=== PATIENT | female | born 2000 | race Two or more races ===

== ENCOUNTER 2025-05-09 18:14 | Emergency (ER) | payer MEDICAID ==
[~2025-05-09] VITALS: Ht 170.2 cm; Wt 143.6 kg
[~2025-05-09 18:14] MED LIST: NITR-87 PO
[2025-05-09 19:52] VITALS: BP 133/104; PULSE 57; RESP 16; TEMP 98.4; O2SAT 97
--- NOTE | 2025-05-09 19:56 | ED.PDOC ---
History of Present Illness(SKN HPI Comments 24F presents to the ER w/ the c/c of a wound check. Pt reports on having had chronic wound wince 2022 of a dog bite on the RLE. Pt notes on having had 3 surgeries, and 10 infections to the area and not able to stand long due from pain. Pt states on currently having muscle spasms which go up into the leg. Pt states on also having a home nurse as well. Denies any symptoms at this time. Patient denies any CP, SOB, dizziness, numbness, weakness, tingling, fever, chills, or recent fall. Chief Complaint: Wound Check Time Seen by MD: 19:50 History of Present Illness: Nurses Notes, Medications, Allergies Allergies: Coded Allergies: NO KNOWN ALLERGIES (Unverified , 05/09/25) Home Meds Active Scripts Nitrofurantoin Monohydrate Mac (Macrobid) 100 Mg Cap, 100 MG PO BID for 5 Days, #10 CAP 0 Refills Prov:LULU CORONEL 12/27/22 Information Source: Patient Mode of Arrival: Ambulatory Severity: Moderate Timing: Came on: Gradually Duration: Since onset Prehospital treatment: None Location: Leg Mechanism: Preceding Wound Object: None Condition of Object: None Retained Foreign Body: Unknown Wound Type: None History of: None Associated Signs and Symptoms: Pain Past Medical History PAST MEDICAL HISTORY: Denies Surgical History: Denies all surgeries SLOT ROUTER History: No Pertinent SLOT ROUTER History Family History Family History: Reviewed,noncontributory to illness, Unknown Social History Smoker: Non-Smoker Alcohol: Denies ETOH Use Drugs: Denies Drug Use Lives In: Home Constitutional: denies: chills, diaphoresis, fatigue, fever, malaise, sweats, weakness, others EENTM: denies: blurred vision, double vision, ear bleeding, ear discharge, ear drainage, ear pain, ear ringing, eye pain, eye redness, hearing loss, mouth pain, mouth swelling, nasal discharge, nose bleeding, nose congestion, nose pain, photophobia, tearing, throat pain, throat swelling, voice changes, others Respiratory: denies: cough, hemoptysis, orthopnea, SOB at rest, shortness of breath, SOB with excertion, stridor, wheezing, others Cardiovascular: denies: chest pain, dizzy spells, diaphoresis, Dyspnea on exertion, edema, irregular heart beat, left arm pain, lightheadedness, palpitations, PND, syncope, others Gastrointestinal: denies: abdomen distended, abdominal pain, blood streaked bowels, constipated, diarrhea, dysphagia, difficulty swallowing, hematemesis, melena, nausea, poor appetite, poor fluid intake, rectal bleeding, rectal pain, vomiting, others Genitourinary: denies: abnormal vagina bleeding, burning, dyspareunia, dysuria, flank pain, frequency, hematuria, incontinence, pain, , vagina discharge, urgency, others Neurological: denies: dizziness, fainting, headache, left sided numbness, left sided weakness, numbness, paresthesia, pre-existing deficit, right sided numbness, right sided weakness, seizure, speech problems, tingling, tremors, w eakness, others Musculoskeletal: denies: back pain, gout, joint pain, joint swelling, muscle pain, muscle stiffness, neck pain, others Integumetry: reports: wounds; denies: bruises, change in color, change in hair/nails, dryness, laceration, lesions, lumps, rash, others Allergic/Immunocompromised: denies: Difficulty Healing, Frequent Infections, Hives, Itching, others Hematologic/Lymphatic: denies: anemia, blood clots, easy bleeding, easy bruising, swollen glands, others Endocrine: denies: excessive hunger, excessive sweating, excessive thirst, excessive urination, flushing, intolerance to cold, intolerance to heat, unexplained weight gain, unexplained weight loss, others Psychiatric: denies: anxiety, bipolar disorder, depression, hopeless, panic disorder, schizophrenia, sleepless, suicidal, others All Other Systems: Reviewed and Negative Physical Exam General Appearance: No Apparent Distress, Obese HEENT: Normal ENT Inspection, PERRL/EOMI, Pharynx Normal, TMs Normal Neck: Full Range of Motion, Non-Tender, Normal, Normal Inspection Respiratory: Chest Non-Tender, Lungs Clear, No Accessory Muscle Use, No Respiratory Distress, Normal Breath Sounds Cardiovascular: No Edema, No JVD, No Murmur, No Gallop, Normal Peripheral Pu lses, Regular Rate/Rhythm Breast Exam: Deferred Gastrointestinal: No Organomegaly, Non Tender, No Pulsatile Mass, Normal Bowel Sounds, Soft Genitalia: Deferred Pelvic: Deferred Rectal: Deferred Extremities: No calf tenderness, Normal capillary refill, Normal inspection, Normal range of motion, Non-tender, No pedal edema, Other (Right leg dressed changed every day by nurse she has a chronic wound and she is waiting for pain management to take care of the pain for so at this time she is being treated by the emergency department) Musculoskeletal : Apperance: Normal Neurologic: Alert, metal weather stripper II-XII nml as Tested, No Motor Deficits, Normal Affect, Normal Mood Cerebellar Function: Normal Reflexes: Normal Skin: Dry, Normal Color, Warm, Wounds (Patient has a chronic wound since 2022 caused by a dog bite and multiple complications) Peripheral Pulses: 1+ carotid (R), 1+ carotid (L) Lymphatic: No Adenopathy Was a procedure done? Was a procedure done?: No Differential Diagnosis (INTG) Differential Diagnosis: N/A Differential Diagnosis: N/A Differential Diagnosis: Other (Chronic wound) Abscess: N/A Differential Diagnosis: N/A X-Ray, Labs, Meds, VS Vital Signs Date Time Temp Pulse Resp B/P (MAP) Pulse Ox O2 Delivery O2 Flow Rate FiO2 05/09/25 19:52 98.4 57 16 133/104 (114) 97 98.4 05/09/25 18:19 98.9 87 17 147/85 99 98.9 X-Ray, Labs, Meds, VS Comment Patient in the emergency department for pain and spasm to the right leg from a chronic wound Dressing applied every day by nursing Patient with chronic pain and need to see pain management Time of 1ST Reevaluation: 20:00 Reevaluation 1ST: Unchanged Time of 2ND Reevaluation: 20:00 Reevaluation 2ND: Unchanged Consultation: PCP, Other (Pain management and wound management) Patient Education/Counseling: Diagnosis, Treatment, Prognosis, Need For Follow Up Family Education/Counseling: Diagnosis, Treatment, Prognosis, Need For Follow Up, No Family Present SEPSIS Sepsis Screen Date sepsis recognized/suspect: May 09, 2025 Time Sepsis recognized/suspect: 1820 Recent Procedure: No On Antibiotic Therapy: No Respiratory Rate >20: No Heart Rate >90: No Temp<36 C (96.8 F) or >38.3 C: No SBP <90 or MAP <65 mmHG: No New Acute Mental Status Change: No Is the patient on CPAP, BIPAP,: No Vital Signs Date Time Temp Pulse Resp B/P (MAP) Pulse Ox O2 Delivery O2 Flow Rate FiO2 05/09/25 19:52 98.4 57 16 133/104 (114) 97 98.4 05/09/25 18:19 98.9 87 17 147/85 99 98.9 Departure 1 Departure Time of Disposition: 20:01 Impression: Primary Impression: Wound of right lower extremity Qualified Codes: S81.801A - Unspecified open wound, right lower leg, initial encounter Additional Impression: Chronic pain Qualified Codes: G89.4 - Chronic pain syndrome Disposition: 01 HOME / SELF CARE / HOMELESS Condition: Fair Additional Instructions: Elevate your leg take your medication as directed e-Prescriptions Cyclobenzaprine Hcl (Cyclobenzaprine Hcl) 10 Mg Tab 10 MG PO TID for 10 Days, #30 TAB Prov: LOBO ROSA MD 05/09/25 Hydrocodone-Acetaminophen (Hydrocodone Bitartrate/AC 5-325 mg) 1 Tab Tab 1 TAB PO BID for 10 Days, #20 TAB Prov: LOBO ROSA MD 05/09/25 Discharged With: Self Critical Care Note Critical Care Time?: No Stability Stability form required: No Heart Score Heart Score: Heart Score Response (Comments) Value History N/A 0 EKG N/A 0 Age <45 0 Risk Factors No known risk factors 0 Troponin N/A 0 Total 0 I personally scribed for LOBO ROSA MD ([email or web address]) on 05/09/25 at 19:56. Electronically submitted by Michael Chan ([email or web address]). LOBO ROSA MD May 09, 2025 19:56
[2025-05-09] MEDS: HYDROcodone-ACET 5/325MG TAB PO ONE (20:02)
[2025-05-09] MEDS ORDERED: CYCL-839 PO (20:04)
[2025-05-09] MEDS ORDERED: HYDR-4902 PO (20:04)
== END 2025-05-09 20:14 | disposition home or self-care (01) ==
LOC: ER 18:14
DX: S81.801A Unspecified open wound, right lower leg, initial encounter (principal); W54.0XXA Bitten by dog, initial encounter; Y93.89 Activity, other specified; Y92.89 Other specified places as the place of occurrence of the external cause; Y99.8 Other external cause status

== ENCOUNTER 2025-05-23 17:12 | Inpatient (IN) | payer MEDICAID ==
[~2025-05-23] VITALS: Ht 170.2 cm; Wt 146.5 kg
[~2025-05-23 17:12] MED LIST changes: +CYCL-839 PO; +HYDR-4902 PO
[2025-05-23 18:51] LABS: Hematocrit 36.9 % (36.0-46.0); Hemoglobin 12.2 g/dL (12.2-16.2); Mean Corpuscular Hemoglobin 28.7 pg (28.0-32.0); Mean Corpuscular Volume 87.0 fL (80.0-100.0); Nucleated Red Blood Cells % 0.0 %
[2025-05-23 19:00] LABS: Alanine Aminotransferase 13 U/L (7-40); Albumin 4.5 g/dL (3.2-4.8); Alkaline Phosphatase 87 U/L (46-116); Anion Gap 8 (5-15); BUN/Creatinine Ratio 15.9 (10.0-20.0); Bilirubin, Total 0.3 mg/dL (0.2-1.0); Blood Urea Nitrogen 10 mg/dL (9-23); Calcium 9.4 mg/dL (8.7-10.4); Carbon Dioxide 28 mmol/L (20-31); Chloride 106 mmol/L (98-107); Glucose 88 mg/dL (74-106); Potassium 3.7 mmol/L (3.5-5.1); Sodium 142 mmol/L (136-145); Total Protein 7.4 g/dL (5.7-8.2)
--- NOTE | 2025-05-23 19:29 | ED.PDOC ---
Musculoskeletal HPI Comments HPI: This is a 24 year old female presenting to the ED with chief complaint of right leg wound. 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 Patient relays that she has had multiple procedures including skin grafts to the wound site since then. Patient states that her home health nurse was redressing her wound today when she found it to be draining with associated swelling. Patient notes she believes it to be infected as she has had similar episodes in the past. Patient denies any numbness, fever, chills, injury, chest pain, SOB, or bleeding. Past Medical History: Chronic RLE wound s/p dog bite x2023 Past Surgical History: Right leg surgery MULTIPLE GRAFTS AND PROCEDURES IN THE AFFECTED AREA Social History: Denies smoking, ETOH, or drug use Medications: Reviewed Allergies: Penicillins HPI: Poor Historian. Patient follows with pain management. Patient has chronic wound on her right lower extremity and has home health nurse daily. REVIEW OF SYSTEMS: CONSTITUTIONAL: Denies acute: fever, diaphoresis, chills, generalized weakness. HEAD: Denies acute: headache, photophobia Eyes: Denies acute: Double vision, vision loss, eye pain, eye discharge. EARS: Denies acute: tinnitus, hearing loss, ear discharge, ear pain, THROAT: Denies acute: sore throat, swelling, difficulty swallowing , pain with swallowing, change in voice. NECK: Denies acute: neck pain, neck swelling, stiff neck. HEART: Denies acute : chest pain, palpitations, LUNGS: Denies acute: SOB, wheezing, cough, hemoptysis ABDOMEN: Denies acute: abdominal pain, Nausea, Vomiting, diarrhea, melena , hematemesis, hematochezia SKIN: Denies acute: rash, redness, lesions, itchiness. EXTREMITIES: Denies acute: calf pain, numbness, tingling, weakness, Denies acute: Low back pain. Neuro: Denies acute: focal neurological deficit, motor or sensory focal neurological deficit, tremors, seizure like activity, confusion, dizziness, change in mental status, loss of bowel or bladder function, cauda equina like symptoms. : Denies acute: dysuria, hematuria, flank pain, increase in urinary frequency. PSYCH: Denies acute: hallucination, suicidal ideation, homicidal ideation. FEMALE: Denies acute: abnormal vaginal bleeding, foul odor, unusual discharge. PHYSICAL EXAM: General: ----mild----acute distress, awake and alert. Head: normocephalic, atraumatic. No raccoon's eyes, no orr sign. Neck: supple, trachea is midline, no swelling. Throat: Normal phonation. Eyes:, no erythema, no purulent discharge, no proptosis, no icterus. Heart: regular rate, regular rhythm, no significant murmur appreciated. Lungs: no apparent respiratory distress, Able to speak in full sentences. No wheezing, no rhonchi, no crackles. No stridors Clear to auscultation bilaterally. Abdomen: non tender to palpation, non distended, soft, no guarding, no rebound, + bowel sounds. Morbidly obese Neuro: Awake, Alert, oriented to name, self, situation, follows commands GCS=15. Speech is normal. Skin: no petechia, no purpura, no cyanosis, non-pale, not jaundice. Lower extremities: --no - Pitting edema no deformity, no focal swelling, no calf TTP. Patient is neurovascularly intact in the affected extremity. Pedal pulses palpable. Sensation and motor are present. Wound dressing was removed. Evaluation of the wound of the right lower extremity above the right lateral malleoli shows some minimal erythema. No apparent swelling or deep ulceration. Makes eye contact. moves all four extremities. Face: no apparent facial droop. Ambulating in the ED independently. ED COURSE: DISCLAIMER: This medical document was created using an electronic medical record system with voice recognition software and computerized dictation system. Although this document has been carefully reviewed, there might still be some phonetic and typographical errors. Occasional wrong-word or "sound-alike" substitutions may have occurred due to the inherent limitations of voice recognition software. These areas are purely typographical due to imperfections of the software programs and do not reflect any compromise in the patient's medical care. Please read the chart carefully and recognize, using context, where these substitutions have occurred. Chief Complaint: Wound Check Time Seen by MD: 19:26 Reviewed Notes: Medications, Allergies Allergies: Coded Allergies: Penicillins (Verified Allergy, Unknown, 05/09/25) Home Meds No Active Prescriptions or Reported Meds Information Source: Patient Mode of Arrival: Ambulatory Was a procedure done? Was a procedure done?: No Differential Diagnosis EXT Differential Diagnosis: Cellulitis, CHF, Deep Vein Thrombosis, Compartment Syndrome, Septic, Neurovascular injury, Arthritis X-Ray, Labs, Meds, VS Vital Signs Date Time Temp Pulse Resp B/P (MAP) Pulse Ox O2 Delivery O2 Flow Rate FiO2 05/23/25 21:00 98 Room Air* 0 21 05/23/25 20:45 98.4 55 14 111/73 (86) 100 98.4 05/23/25 17:16 98.3 70 16 119/76 100 98.3 Lab Test 05/23/25 18:25 Range/Units White Blood Count 9.3 4.4-10.8 10^3/uL Red Blood Count 4.25 4.0-5.20 10^6/uL Hemoglobin 12.2 12.2-16.2 g/dL Hematocrit 36.9 36.0-46.0 % Mean Corpuscular Volume 87.0 80.0-100.0 fL Mean Corpuscular Hemoglobin 28.7 28.0-32.0 pg Mean Corpuscular Hemoglobin Concent 33.0 32.0-36.0 g/dL Red Cell Distribution Width 13.5 11.8-14.3 % Platelet Count 304 140-450 10^3/uL Mean Platelet Volume 8.0 6.9-10.8 fL Neutrophils (%) (Auto) 68.8 37.0-80.0 % Lymphocytes (%) (Auto) 22.4 10.0-50.0 % Monocytes (%) (Auto) 7.0 0.0-12.0 % Eosinophils (%) (Auto) 0.6 0.0-7.0 % Basophils (%) (Auto) 1.2 0.0-2.0 % Neutrophils # (Auto) 6.4 1.6-8.6 10 ^3/uL Lymphocytes # (Auto) 2.1 0.4-5.4 10 ^3/uL Monocytes # (Auto) 0.6 0-1.3 10 ^3/uL Eosinophils # (Auto) 0.1 0-0.8 10 ^3/uL Basophils # (Auto) 0.1 0-0.2 10 ^3/uL Nucleated Red Blood Cells 0.0 % Erythrocyte Sedimentation Rate 35 H 0-20 mm/hr Sodium Level 142 136-145 mmol/L Potassium Level 3.7 3.5-5.1 mmol/L Chloride Level 106 98-107 mmol/L Carbon Dioxide Level 28 20-31 mmol/L Anion Gap 8 5-15 Blood Urea Nitrogen 10 9-23 mg/dL Creatinine 0.63 0.550-1.02 mg/dL Glomerular Filtration Rate Calc 127 >90 mL/min BUN/Creatinine Ratio 15.9 10.0-20.0 Serum Glucose 88 74-106 mg/dL Lactic Acid Level 1.6 0.4-2.0 mmol/L Calcium Level 9.4 8.7-10.4 mg/dL Total Bilirubin 0.3 0.2-1.0 mg/dL Aspartate Amino Transferase (AST) 11 L 13-40 U/L Alanine Aminotransferase (ALT) 13 7-40 U/L Alkaline Phosphatase 87 46-116 U/L C-Reactive Protein High Sensitivity 1.67 H <1.0 mg/dL Total Protein 7.4 5.7-8.2 g/dL Albumin 4.5 3.2-4.8 g/dL Current Medications Medications (Trade) Dose Ordered Sig/Susi Route Start Time Stop Time Status Last Admin Acetaminophen/ Hydrocodone Bitart ([place] 5/325MG Tab) 1 tab ONCE ONCE PO 05/23/25 20:15 05/23/25 20:26 DC 05/23/25 21:16 Clindamycin Phosphate 50 ml @ 50 mls/hr ONCE ONCE IV 05/23/25 20:15 05/23/25 21:14 DC 05/23/25 21:15 Time of 1ST Reevaluation: 20:26 Reevaluation 1ST: Unchanged Patient Education/Counseling: Diagnosis, Treatment Family Education/Counseling: No Family Present Comments MDM: patient presented with the above HPI.------workup was initiated. patient was found with the above mentioned diagnosis. the following medications were ordered: please refer to order lists of meds and tests obtained by myself Dr. Giron. Patient ED course and VS have been stabilized. Patient has been reassessed in the ED and remained in a stable condition. Pertinent incidental findings were discussed with the patient and/or family. Patient/family voices understanding and is agreeable with plan. Patient has been observed in the ED adequate length of time to insure improvement/stability. Escalation of care considered: Consideration of escalation to observation or admission Given the patient's slightly elevated CRP and ESR in history of frequent i nfections in the same site, patient was admitted to the hospital for IV antibiotics. Patient was ADMITTED to the medicine team for further evaluation and treatment of their presentation. All the reports of any imaging studies that were ordered by myself were reviewed by myself. Departure 1 Departure Time of Disposition: 20:12 Impression: Primary Impression: Wound of right lower extremity Disposition: ADMITTED INPATIENT Admit to: Tele Condition: Guarded e-Prescriptions No Active Prescriptions or Reported Meds Discharged With: Self Critical Care Note Critical Care Time?: No I personally scribed for TELLO GIRON DO ([email or web address]) on 05/23/25 at 19:29. Electronically submitted by Eris Judge ([email or web address]). TELLO GIRON DO May 23, 2025 19:29
[2025-05-23 21:00] VITALS: O2SAT 98
[2025-05-23] MEDS: CLINDAMYCIN 600MG IV 50 ML IV ONE (21:15)
[2025-05-23] MEDS: HYDROcodone-ACET 5/325MG TAB PO ONE (21:16)
[2025-05-23] MEDS ORDERED: VANCOMYCIN PER PHARMACY 0 MG IV SCH (21:30)
--- NOTE | 2025-05-23 21:31 | DVHHPRES ---
History of Present Illness Resident Creating Document: HANH SHARP RESIDENT History of Present Illness This is a 24-year-old female with past medical history prediabetes came to ER with a complaint of nonhealing chronic wound lateral surface of right leg. Patient history of dog bite April 2023 since then she had multiple surgery wound area in [facility]. Last seen by surgery on January 2024. Patient having home health aide nurse who make dressing her wound daily but last few days patient wound become getting worse day by day associated with discharge. Patient having vascular surgery movement on 05/25/2025. Patient denies taking any [id number] drugs, trauma or MVA. Patient having appointment with pain management end of the 2024. Patient also stated her disability case in process. PCP refer to pain management for pain evaluation and medication. Patient currently denies any fever, SOB, chest pain, headache, abdominal pain, dysuria or any other acute distress. Past medical: Prediabetes Past surgical history: Wound site x3 surgery done in [facility] including skin grafting Family history: Nothing contributory Allergy: Penicillin PCP: Dr. Flores Home meds: None Review of Systems Constitutional: Yes: Malaise, Other (Obese); No: Fever, Chills, Sweats, Weakness Eyes: No: Pain, Vision change, Conjunctivae inflammation, Eyelid inflammation, Other, Redness ENT: No: Ear pain, Ear discharge, Nose pain, Nose discharge, Nose congestion, Mouth pain, Mouth swelling, Throat pain, Throat swelling, Other Respiratory: No: Cough, Dry, Shortness of breath, SOB with excertion, Wheezing, Hemoptysis, Pleuritic Pain, Sputum, Wheezing, Other Cardiovascular: No: Chest Pain, Palpitations, Orthopnea, Paroxysmal Noc. Dyspnea, Edema, Lt Headedness, Other Gastrointestinal: No: Nausea, Vomiting, Abdominal Pain, Diarrhea, Constipation, Melena, Hematochezia, Other Genitourinary: No Dysuria, No Frequency, No Incontinence, No Hematuria, No Retention, No Other Musculoskeletal: leg pain; No: other, neck pain, shoulder pain, arm pain, back pain, hand pain, foot pain Skin: Other (Wound lateral surface of right leg); No: Rash, Lesions, Jaundice, Bruising Neurological: No: Weakness, Numbness, Incoordination, Change in speech, Confusion, Seizures, Other Allergies: Coded Allergies: Penicillins (Verified Allergy, Unknown, 05/09/25) Exam Vital Signs Vital Signs Date Time Temp Pulse Resp B/P (MAP) Pulse Ox O2 Delivery O2 Flow Rate FiO2 05/23/25 20:45 98.4 55 14 111/73 (86) 100 98.4 General Appearance: Alert, Oriented X3, Cooperative, mild distress HEENT: Atraumatic, PERRLA, EOMI Respiratory: Clear to auscultation, Normal air movement Cardiovascular: Regular rate, Normal S1, Normal S2, No murmurs Abdominal: Normal bowel sounds, Soft, No tenderness Extremities: No clubbing, No cyanosis, No edema Skin: No rashes, No breakdown Neuro: Normal speech, Strength at 5/5 X4 ext, Normal tone, Cranial nerves 3-12 NL, Other (Gait instability due to wound right leg) Psych/Mental Status: Mental status NL Labs/Xrays Labs Test 05/23/25 18:25 Range/Units White Blood Count 9.3 4.4-10.8 10^3/uL Red Blood Count 4.25 4.0-5.20 10^6/uL Hemoglobin 12.2 12.2-16.2 g/dL Hematocrit 36.9 36.0-46.0 % Mean Corpuscular Volume 87.0 80.0-100.0 fL Mean Corpuscular Hemoglobin 28.7 28.0-32.0 pg Mean Corpuscular Hemoglobin Concent 33.0 32.0-36.0 g/dL Red Cell Distribution Width 13.5 11.8-14.3 % Platelet Count 304 140-450 10^3/uL Mean Platelet Volume 8.0 6.9-10.8 fL Neutrophils (%) (Auto) 68.8 37.0-80.0 % Lymphocytes (%) (Auto) 22.4 10.0-50.0 % Monocytes (%) (Auto) 7.0 0.0-12.0 % Eosinophils (%) (Auto) 0.6 0.0-7.0 % Basophils (%) (Auto) 1.2 0.0-2.0 % Neutrophils # (Auto) 6.4 1.6-8.6 10 ^3/uL Lymphocytes # (Auto) 2.1 0.4-5.4 10 ^3/uL Monocytes # (Auto) 0.6 0-1.3 10 ^3/uL Eosinophils # (Auto) 0.1 0-0.8 10 ^3/uL Basophils # (Auto) 0.1 0-0.2 10 ^3/uL Nucleated Red Blood Cells 0.0 % Erythrocyte Sedimentation Rate 35 H 0-20 mm/hr Sodium Level 142 136-145 mmol/L Potassium Level 3.7 3.5-5.1 mmol/L Chloride Level 106 98-107 mmol/L Carbon Dioxide Level 28 20-31 mmol/L Anion Gap 8 5-15 Blood Urea Nitrogen 10 9-23 mg/dL Creatinine 0.63 0.550-1.02 mg/dL Glomerular Filtration Rate Calc 127 >90 mL/min BUN/Creatinine Ratio 15.9 10.0-20.0 Serum Glucose 88 74-106 mg/dL Lactic Acid Level 1.6 0.4-2.0 mmol/L Calcium Level 9.4 8.7-10.4 mg/dL Total Bilirubin 0.3 0.2-1.0 mg/dL Aspartate Amino Transferase (AST) 11 L 13-40 U/L Alanine Aminotransferase (ALT) 13 7-40 U/L Alkaline Phosphatase 87 46-116 U/L C-Reactive Protein High Sensitivity 1.67 H <1.0 mg/dL Total Protein 7.4 5.7-8.2 g/dL Albumin 4.5 3.2-4.8 g/dL SEPSIS Sepsis Screen Date sepsis recognized/suspect: May 23, 2025 Time Sepsis recognized/suspect: 1714 Recent Procedure: No On Antibiotic Therapy: No Respiratory Rate >20: No Heart Rate >90: No Temp<36 C (96.8 F) or >38.3 C: No SBP <90 or MAP <65 mmHG: No New Acute Mental Status Change: No Is the patient on CPAP, BIPAP,: No Physician Orders Senior Consulting Manager (05/23/25 ) Admit (05/23/25 21:25) Code Status (05/23/25 21:25) Hydrocodone-Acet 5/325mg Tab (Harlan 5/32 (05/23/25 21:30) Enoxaparin Sodium (Lovenox) (05/24/25 10:00) Zinc Sulfate (05/24/25 10:00) Ascorbic Acid Tablet (Vitamin C Tablet) (05/23/25 22:00) Notify Md Of Changes From Base (05/23/25 21:25) Consistent Carb(Ccho)Diabetes (05/24/25 Breakfast) Ceftriaxone Ivpb Rocephin (05/24/25 09:00) Ceftriaxone Ivpb Rocephin (05/23/25 21:30) Vancomycin (05/23/25 21:30) * Wound Consult (05/23/25 ) Vital Signs Date Time Temp Pulse Resp B/P (MAP) Pulse Ox O2 Delivery O2 Flow Rate FiO2 05/23/25 20:45 98.4 55 14 111/73 (86) 100 98.4 05/23/25 17:16 98.3 70 16 119/76 100 98.3 Laboratory Tests Test 05/23/25 18:25 Lactic Acid Level 1.6 mmol/L (0.4-2.0) White Blood Count 9.3 10^3/uL (4.4-10.8) Medications Medications Dose Ordered Sig/Susi Route Start Time Stop Time Status Last Admin Dose Admin Acetaminophen/ Hydrocodone Bitart 1 tab ONCE ONCE PO 05/23/25 20:15 05/23/25 20:26 DC 05/23/25 21:16 1 TAB Clindamycin Phosphate 50 ml @ 50 mls/hr ONCE ONCE IV 05/23/25 20:15 05/23/25 21:14 DC 05/23/25 21:15 50 MLS/HR Assessment/Plan Assessment/Plan Nonhealing wound right leg Right leg pain due to cellulitis History of dog bite 2022 In ER patient received clindamycin and Harlan. Xray left tibia fibula on 09/2021: No fracture or dislocation. Lactic acid:1.6 ESR: 35 CRP:1.67 IVF Empiric antibiotic ceftriaxone and vancomycin Wound culture Wound consult Pain management Follow labs Prediabetes Avoid sugar and sugar containing diet Hemoglobin A1c Morbid obesity, BMI 50.6 Lifestyle modification Diet: Carbohydrate consistent DVT prophylaxis: Lovenox GI prophylaxis: Pantoprazole Goals of care discussion. More than 23 minute spent with patient. Full code status Case discussed with Dr. Hennessy. Plan discussed with: Patient, Other My Orders Orders - HANH SHARP RESIDENT Procedure Category Date Status Time Admit ADMIT 05/23/25 Verified 21:25 Code Status CODE 05/23/25 Verified 21:25 Hydrocodone-Acet PHA 05/23/25 Verified 5/325mg Tab (Harlan 21:30 Enoxaparin Sodium PHA 05/24/25 Verified (Lovenox) 10:00 Zinc Sulfate PHA 05/24/25 Verified 10:00 Ascorbic Acid Tablet PHA 05/23/25 Verified (Vitamin C Tablet) 22:00 Notify Md Of Changes PRISCILLA 05/23/25 Verified From Base 21:25 Consistent DIET 05/24/25 [facility]ified [facility] Breakfast Ceftriaxone Ivpb PHA 05/24/25 Verified Rocephin 09:00 Ceftriaxone Ivpb PHA 05/23/25 Verified Rocephin 21:30 Vancomycin PHA 05/23/25 Verified 21:30 * Wound Consult CONS 05/23/25 Verified Visit Coding STANDARD RES Billing Provider: MIRIAM HENNESSY MD Date of Service if different f: May 23, 2025 Common Visit Codes: 35616-IVQAUEA INP/OBS CARE (HIGH) Secondary Visit Codes: 96999-WCLBSSHA CARE PLAN 30 MINUTES HANH SHARP RESIDENT May 23, 2025 21:31
[2025-05-23] MEDS: ASCORBIC ACID 500 MG TAB PO SCH (22:04)
[2025-05-24] MEDS: VANCOMYCIN 1GM/250ML IV SCH (00:26)
[2025-05-24 01:00] VITALS: BP 114/64; PULSE 52; RESP 20; TEMP 97.9; O2SAT 100
[2025-05-24 05:00] VITALS: BP 137/49; PULSE 68; RESP 18; TEMP 97.8; O2SAT 98
[2025-05-24] MEDS: PANTOPRAZOLE 40 MG TAB PO SCH (05:29)
[2025-05-24] MEDS: HYDROcodone-ACET 5/325MG TAB PO PRN (05:31)
[2025-05-24 06:14] LABS: Hematocrit 37.1 % (36.0-46.0); Hemoglobin 12.3 g/dL (12.2-16.2); Mean Corpuscular Hemoglobin 29.1 pg (28.0-32.0); Mean Corpuscular Volume 88.1 fL (80.0-100.0); Nucleated Red Blood Cells % 0.0 %
[2025-05-24 06:17] LABS: Chloride 106 mmol/L (98-107); Potassium 4.0 mmol/L (3.5-5.1); Sodium 141 mmol/L (136-145)
[2025-05-24 06:18] LABS: Anion Gap 9 (5-15); Calcium 9.3 mg/dL (8.7-10.4); Carbon Dioxide 26 mmol/L (20-31)
[2025-05-24 06:23] LABS: BUN/Creatinine Ratio 15.9 (10.0-20.0); Blood Urea Nitrogen 10 mg/dL (9-23); Glucose 81 mg/dL (74-106); Triglycerides 73 mg/dL (< 150)
[2025-05-24 06:25] LABS: Cholesterol 145 mg/dL (< 200); HDL Cholesterol 58 mg/dL (40-59)
[2025-05-24 06:32] LABS: INR 0.93 (0.9-1.15); Partial Thromboplastin Time 30.6 SEC (24.5-34.5); Prothrombin Time 9.9 sec (9.3-11.8)
[2025-05-24 08:00] VITALS: BP 96/59; PULSE 65; RESP 16; TEMP 97.8; O2SAT 100
[2025-05-24] MEDS: ZINC SULFATE 220mg CAP or TAB PO SCH (09:59)
[2025-05-24] MEDS: ENOXAPARIN SOD 40 MG/0.4 ML SYRINGE SC SCH (09:59)
[2025-05-24] MEDS: VANCOMYCIN 1GM/250ML KIT 250 ML IV SCH (10:46)
[2025-05-24] MEDS ORDERED: HYDR-4902 PO (10:56)
[2025-05-24] MEDS ORDERED: LEVO500T91 PO (10:56)
--- NOTE | 2025-05-24 11:02 | DVHDSRES ---
Discharge Summary Date of Admission Resident Creating Document: LEXIS SOTO May 23, 2025 at 21:25 Date of Discharge: May 24, 2025 Admitting Diagnosis Right leg pain due to cellulitis Labs/Diagnostic Data: Laboratory Results Test 05/24/25 05:55 05/23/25 18:25 White Blood Count 8.9 10^3/uL (4.4-10.8) Red Blood Count 4.22 10^6/uL (4.0-5.20) Hemoglobin 12.3 g/dL (12.2-16.2) Hematocrit 37.1 % (36.0-46.0) Mean Corpuscular Volume 88.1 fL (80.0-100.0) Mean Corpuscular Hemoglobin 29.1 pg (28.0-32.0) Mean Corpuscular Hemoglobin Concent 33.0 g/dL (32.0-36.0) Red Cell Distribution Width 13.4 % (11.8-14.3) Platelet Count 304 10^3/uL (140-450) Mean Platelet Volume 7.7 fL (6.9-10.8) Neutrophils (%) (Auto) 67.3 % (37.0-80.0) Lymphocytes (%) (Auto) 22.6 % (10.0-50.0) Monocytes (%) (Auto) 9.0 % (0.0-12.0) Eosinophils (%) (Auto) 0.7 % (0.0-7.0) Basophils (%) (Auto) 0.4 % (0.0-2.0) Neutrophils # (Auto) 6.0 10 ^3/uL (1.6-8.6) Lymphocytes # (Auto) 2.0 10 ^3/uL (0.4-5.4) Monocytes # (Auto) 0.8 10 ^3/uL (0-1.3) Eosinophils # (Auto) 0.1 10 ^3/uL (0-0.8) Basophils # (Auto) 0 10 ^3/uL (0-0.2) Nucleated Red Blood Cells 0.0 % Prothrombin Time 9.9 sec (9.3-11.8) Prothrombin Time INR 0.93 (0.9-1.15) Activated Partial Thromboplast Time 30.6 SEC (24.5-34.5) Sodium Level 141 mmol/L (136-145) Potassium Level 4.0 mmol/L (3.5-5.1) Chloride Level 106 mmol/L (98-107) Carbon Dioxide Level 26 mmol/L (20-31) Anion Gap 9 (5-15) Blood Urea Nitrogen 10 mg/dL (9-23) Creatinine 0.63 mg/dL (0.550-1.02) Glomerular Filtration Rate Calc 127 mL/min (>90) BUN/Creatinine Ratio 15.9 (10.0-20.0) Serum Glucose 81 mg/dL (74-106) Hemoglobin A1c 5.3 % A1C (<5.7) Calcium Level 9.3 mg/dL (8.7-10.4) Triglycerides Level 73 mg/dL (< 150) Cholesterol Level 145 mg/dL (< 200) LDL Cholesterol 82 mg/dL (< 100) HDL Cholesterol 58 mg/dL (40-59) Vitamin B12 Level 394 pg/mL (211-911) Vitamin D 25-Hydroxy 23.4 ng/mL (30.0-100) Thyroid Stimulating Hormone (TSH) 1.59 uIU/mL (0.55-4.78) Erythrocyte Sedimentation Rate 35 mm/hr (0-20) Lactic Acid Level 1.6 mmol/L (0.4-2.0) Total Bilirubin 0.3 mg/dL (0.2-1.0) Aspartate Amino Transferase (AST) 11 U/L (13-40) Alanine Aminotransferase (ALT) 13 U/L (7-40) Alkaline Phosphatase 87 U/L (46-116) C-Reactive Protein High Sensitivity 1.67 mg/dL (<1.0) Total Protein 7.4 g/dL (5.7-8.2) Albumin 4.5 g/dL (3.2-4.8) Other Laboratory Tests 05/24/25 05:55 Brief Hx & Hospital Course: This is a 24-year-old female with past medical history prediabetes came to ER with a complaint of nonhealing chronic wound lateral surface of right leg. Patient history of dog bite April 2023 since then she had multiple surgery wound area in [facility]. Last seen by surgery on January 2024. Patient having home health aide nurse who make dressing her wound daily but last few days patient wound become getting worse day by day associated with discharge. Patient having vascular surgery movement on 05/25/2025. Patient denies taking any piro-iys-kknbdxq drugs, trauma or MVA. Patient having appointment with pain management end of the 2024. Patient also stated her disability case in process. PCP refer to pain management for pain evaluation and medication. Patient currently denies any fever, SOB, chest pain, headache, abdominal pain, dysuria or any other acute distress. Past medical: Prediabetes Past surgical history: Wound site x3 surgery done in [facility] including skin grafting Family history: Nothing contributory Allergy: Penicillin PCP: Dr. Flores Brief Hospital course: Patient came to the hospital with chief complaints of pain in the right lower leg due to cellulitis, status post dog bite in 2022. Patient had nonhealing right wound for which antibiotics with ceftriaxone and vancomycin were given. Wound consult was placed and wound culture was taken. Pain management was given. Patient has morbid obesity with BMI of 50.6 for which patient was counseled on lifestyle modifications, diet, exercise for 18 minutes. Patient is advised to follow-up with primary care doctor and has a appointment with [facility] for vascular surgery. Patient is advised to follow-up with discharge Clinic. patient communicated understanding of her discharge plann and has agreed. General Appearance: Alert, Oriented X3, Cooperative, mild distress HEENT: Atraumatic, PERRLA, EOMI Respiratory: Clear to auscultation, Normal air movement Cardiovascular: Regular rate, Normal S1, Normal S2, No murmurs Abdominal: Normal bowel sounds, Soft, No tenderness Extremities: No clubbing, No cyanosis, No edema Skin: No rashes, No breakdown Neuro: Normal speech, Strength at 5/5 X4 ext, Normal tone, Cranial nerves 3-12 NL, Other (Gait instability due to wound right leg) Psych/Mental Status: Mental status NL patient is to take Levofloxacin p.o. daily for 7 days Harvel 5 for 10 days Condition at Discharge: Stable Final Diagnosis/Problems List Nonhealing wound right leg Right leg pain due to cellulitis Morbid obesity, BMI 50.6 Vit d deficency Discharge Disposition: Home Discharge Instruct/Medications Diet: Regular Activity: No Restrictions, As Tolerated Follow Up/Referral: follow up with d/c clinic in 1 week Medications: as per emr Scheduled Levofloxacin Hemihydrate (Levofloxacin), 1 TAB PO DAILY Scheduled PRN Hydrocodone-Acetaminophen (Hydrocodone Bitartrate/AC 5-325 mg), 1 TAB PO BIDPRN PRN Discharge Statement: "Patient was advised to return to the ER or call 911 if any headaches, dizziness, shortness of breath, chest pain, abdominal pain, bleeding, fevers, or worsening of medical condition. Patient was counseled about treatment plan, medications, possible side effects, patientverbalized understanding. All questions were answered to the best of my ability. This discharge took greater then 30 minutes in planning, reviewing documentation, counseling the patient, and discussing with other team members." ASSESSMENT ASSESSMENT Assessment right leg cellulitis Visit Coding STANDARD RES Billing Provider: NATIVIDAD FOSS MD Date of Service if different f: May 24, 2025 Common Visit Codes: 27505-WFL/OBS DISCH DAY >30min LEXIS SOTO RESIDENT May 24, 2025 11:02
[2025-05-24 11:19] VITALS: BP 96/59; PULSE 65; RESP 16; TEMP 97.8; O2SAT 100
== END 2025-05-24 13:20 | disposition home or self-care (01) | DRG 383 ==
LOC: ER 17:12 → OVERFLOW 21:25
PROVIDERS: ADMIT Student in an Organized Health Care Education/Training Program; ATTEND Student in an Organized Health Care Education/Training Program
DX: L03.115 Cellulitis of right lower limb (principal); Z68.43 Body mass index [BMI] 50.0-59.9, adult; S81.801A Unspecified open wound, right lower leg, initial encounter; E66.01 Morbid (severe) obesity due to excess calories; E55.9 Vitamin D deficiency, unspecified; R73.03 Prediabetes; X58.XXXA Exposure to other specified factors, initial encounter; Y93.89 Activity, other specified; Z88.0 Allergy status to penicillin; Y92.89 Other specified places as the place of occurrence of the external cause; Y99.8 Other external cause status
CPT/HCPCS: 36415; 80048; 80053; 80061; 82306; 82607; 83036; 83605; 84443; 85025; 85610; 85652; 85730; 86141; 96365; G0378; J3490